=== PATIENT | female | born 1995 | race African-American/Black ===

== ENCOUNTER 2016-08-11 23:13 | Emergency (ER) | payer MEDICAID, OTHER ==
[~2016-08-11] VITALS: Ht 152.4 cm; Wt 73.0 kg
[~2016-08-11 23:13] MED LIST: CEPH500C PO; PRENCAP6 PO; PROM1SUP7 RECTAL; PROM25TA5 PO
[2016-08-11 23:20] VITALS: BP 118/83; PULSE 91; RESP 14; TEMP 98.7; O2SAT 96
[2016-08-11] MEDS ORDERED: CARBXR200 PO (23:35)
[2016-08-11] MEDS ORDERED: PREN29TA PO (23:35)
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
== END 2016-08-12 06:10 | disposition home or self-care (01) ==
LOC: NEPE 23:13 → HOBED 08-12 06:10
DX: O26.893 Other specified pregnancy related conditions, third trimester (principal); O99.343 Other mental disorders complicating pregnancy, third trimester; J45.909 Unspecified asthma, uncomplicated; F41.8 Other specified anxiety disorders; Z3A.29 29 weeks gestation of pregnancy; V43.52XA Car driver injured in collision with other type car in traffic accident, initial encounter; Y93.9 Activity, unspecified; Y92.9 Unspecified place or not applicable; Y99.9 Unspecified external cause status
CPT/HCPCS: 99283

== ENCOUNTER 2017-06-04 17:13 | Emergency (ER) | payer MEDICAID ==
[~2017-06-04 17:13] MED LIST changes: +CARBXR200 PO; -CEPH500C PO; +PREN29TA PO; -PRENCAP6 PO; -PROM1SUP7 RECTAL; -PROM25TA5 PO
[2017-06-04 17:17] VITALS: BP 143/91; PULSE 58; RESP 12; TEMP 98.3; O2SAT 99
[2017-06-04 18:22] LABS: BACTERIA, URINE OCC /hpf; BLOOD, URINE NEG (NEG); COMMENT (UR) CULTURE INDICATED; CULTURE IF INDICATED CULTURE INDICATED; GLUCOSE,URINE NEG (NEG); KETONE, URINE TRACE mg/dL (NEG); MUCUS URINE FEW /lpf (OCC); NITRITE,URINE NEG (NEG); SQUAMOUS EPITHELIAL CELL URINE 10 /hpf (0-5); TRANSITIONAL EPI CELLS, URINE <1 /hpf; URINE COLOR YELLOW (YELLW/STRAW)
--- NOTE | 2017-06-04 21:55 | PD ---
HPI Chief Complaint: Complaint Time Seen by Provider: 21:53 Travel History International Travel<30 days: No Contact w/Intl Traveler<30days: No Traveled to known affect area: No History of Present Illness HPI 21-year-old female came to the emergency room with history of lower abdominal pain and vaginal discharge that smells foul. Patient says this has been going on for past 1 week to 2 weeks. No history of dysuria or hematuria. Patient has had chlamydia last year. She says she was treated. She has had unprotected sex. There was a UA and urine GC and chlamydia ordered in triage area the UA report is back. Also a urine was done which was negative. Given patient's symptoms I have told her that I would go ahead and treat her and she is okay with that. He is otherwise a healthy patient. Her lower abdominal pain is worse during movement and intercourse. No history of fever or chills. PFSH Past Medical History Narrative Medical List of her past medical, surgical, social and family history is reviewed from the nursing note. Hx Anticoagulant Therapy: No Asthma: Yes Autoimmune Disease: No Anxiety: Yes Depression: Yes Cancer: No Cardiovascular Problems: No Chemotherapy: No Diabetes: No Diminished Hearing: No Endocrine: No GERD: Yes Genitourinary: Yes (HX OF UTI) Immune Disorder: No Implanted Vascular Access Dvce: No Musculoskeletal: No Neurologic: Yes (EPILEPSY ) Psychiatric: No Reproductive: No Respiratory: Yes (ASTHMA) Immunizations Current: Yes Seizures: Yes (EPILEPSY) PNEUMOCCOCAL Vaccine (Year): 1 : 8 Para: 2 Miscarriage: 4 : 0 Past Surgical History Abdominal Surgery: Yes () Section: Yes Endocrine Surgery: Yes Hysterectomy: No Tonsillectomy: Yes Other Surgery: Yes Family History Family Hypercholesterolemia: Yes Social History Alcohol Use: No Tobacco Use: No Substance Use: No Allergies-Medications (Allergen,Severity, Reaction): Coded Allergies: chocolate flavor (Unverified Allergy, Severe, THRAOT SWELLING AND ITCHY, ) nitrofurantoin (Unverified Allergy, Severe, NAUSEA/VOMITING, 03/05/17) penicillin G (Unverified Allergy, Severe, Swelling, 03/05/17) insect venom (Unverified Adverse Reaction, Intermediate, rash, 03/05/17) omeprazole (Unverified Adverse Reaction, Intermediate, GI UPSET, 03/05/17) Comments List of her allergies reviewed from the nursing note. Reported Meds & Prescriptions Reported Meds & Active Scripts Active Flagyl (Metronidazole) 250 Mg Tab 250 Mg PO TID 7 Days Reported Plus Iron 29-1 mg ( Vit-Iron Carbonyl) 1 Tab Tab 1 Tab PO DAILY Tegretol-Xr 12 HR (Carbamazepine) 200 Mg Tab 200 Mg PO Q12HR Narrative Medication List of her home medications reviewed from the nursing note. Review of Systems Except as stated in HPI: all other systems reviewed are Neg Genitourinary: Positive: Discharge Physical Exam Narrative GENERAL: Awake, alert, no obvious distress SKIN: Focused skin assessment warm/dry. HEAD: Atraumatic. Normocephalic. EYES: Pupils equal and round. No scleral icterus. No injection or drainage. ENT: No nasal bleeding or discharge. Mucous membranes pink and moist. NECK: Trachea midline. No JVD. CARDIOVASCULAR: Regular rate and rhythm. No murmur appreciated. RESPIRATORY: No accessory muscle use. Clear to auscultation. Breath sounds equal bilaterally. GASTROINTESTINAL: Abdomen soft, non-tender, nondistended. Hepatic and splenic margins not palpable. MUSCULOSKELETAL: No obvious deformities. No clubbing. No cyanosis. No edema. NEUROLOGICAL: Awake and alert. No obvious cranial nerve deficits. Motor grossly within normal limits. Normal speech. PSYCHIATRIC: Appropriate mood and affect; insight and judgment normal. Data Data Last Documented VS Orders Orders Urinalysis - C+S If Indicated (06/04/17 17:36) Ed Urine Pregnancytest Poc (06/04/17 17:36) Gc And Chlamydia Pcr (06/04/17 17:36) Urine Culture (06/04/17 17:45) Doxycycline (Vibratab) (06/04/17 22:15) Metronidazole (Flagyl) (06/04/17 22:15) Ceftriaxone Inj (Rocephin Inj) (06/04/17 22:15) Lidocaine 1% Inj (50 Ml) (Xylocaine 1% I (06/04/17 22:15) Ed Discharge Order (06/04/17 22:04) Azithromycin Powd Pack (Zithromax Powd P (06/04/17 22:15) Labs Laboratory Tests Test 06/04/17 17:45 Urine Color YELLOW Urine Turbidity HAZY Urine pH 7.0 Urine Specific [place] 1.029 Urine Protein 30 mg/dL Urine Glucose (UA) NEG mg/dL Urine Ketones TRACE mg/dL Urine Occult Blood NEG Urine Nitrite NEG Urine Bilirubin NEG Urine Urobilinogen 2.0 MG/DL Urine Leukocyte Esterase SMALL Urine RBC 1 /hpf Urine WBC 18 /hpf Urine Squamous Epithelial Cells 10 /hpf Urine Transitional Epithelial Cells <1 /hpf Urine Bacteria OCC /hpf Urine Mucus FEW /lpf Microscopic Urinalysis Comment CULTURE INDICATED Chlamydia trachomatis DNA (PCR) NOT DETECTED Neisseria gonorrhoeae DNA (PCR) NOT DETECTED MDM Medical Decision Making Medical Screen Exam Complete: Yes Emergency Medical Condition: Yes Medical Record Reviewed: Yes Differential Diagnosis PID, cervicitis, UTI Narrative Course 10:07 PM once again I recommended that the patient should be treated for her symptoms as STD. She is agreeable to that. I've ordered IM Rocephin, by mouth doxycycline and by mouth Flagyl. Patient will be discharged home on 2 prescriptions. As far as UTI is concerned I would wait and see what the urine culture grows. Patient is allergic to Macrobid. Procedures EKG Prior to Arrival: No Diagnosis Primary Impression: PID (acute pelvic inflammatory disease) Additional Impression: UTI (urinary tract infection) Qualified Codes: N39.0 - Urinary tract infection, site not specified Referrals: Primary Care Physician Additional Instructions: Please return to the ER if the condition worsens or any other new concerns. He should not be having unprotected sex due to the risk of exposure for STD which also includes HIV and hep C. Use condoms. Take the medications as per the prescription direction. Med/Other Pt SpecificInfo: Prescription(s) given Scripts Metronidazole (Flagyl) 250 Mg Tab 250 MG PO TID for Infection for 7 Days, TAB 0 Refills Prov: Ana Farah MD 06/04/17 Disposition: 01 DISCHARGE HOME Condition: Stable Ana Farah MD Jun 04, 2017 21:55
[2017-06-04] MEDS ORDERED: METR250 PO (22:10)
[2017-06-04] MEDS ORDERED: AZITHROMYCIN PWD FOR SUSP 1 GM PACKET PO ONE (22:15)
[2017-06-04] MEDS ORDERED: metroNIDAZOLE 500 MG TAB PO ONE (22:15)
[2017-06-04] MEDS ORDERED: cefTRIAXone 250 MG VIAL IM ONE (22:15)
[2017-06-04] MEDS ORDERED: LIDOCAINE HCL 1% 50 ML VIAL IM ONE (22:15)
[2017-06-04] MEDS ORDERED: DOXYCYCLINE HYCLATE 100 MG TAB PO ONE (22:15)
[2017-06-04 23:39] LABS: CHLAMYDIA PCR NOT DETECTED (NOT DETECT); NEISSERIA PCR NOT DETECTED (NOT DETECT)
== END 2017-06-04 23:18 | disposition home or self-care (01) ==
LOC: NEPC 17:13
DX: N73.9 Female pelvic inflammatory disease, unspecified (principal); N39.0 Urinary tract infection, site not specified; B96.20 Unspecified Escherichia coli [E. coli] as the cause of diseases classified elsewhere; J45.909 Unspecified asthma, uncomplicated; F41.9 Anxiety disorder, unspecified; F32.9 Major depressive disorder, single episode, unspecified; K21.9 Gastro-esophageal reflux disease without esophagitis; G40.909 Epilepsy, unspecified, not intractable, without status epilepticus; Z79.899 Other long term (current) drug therapy
CPT/HCPCS: 81001; 84703; 87077; 87086; 87186; 87491; 87591; 96372; 99284; J0696

== ENCOUNTER 2017-09-22 04:17 | Emergency (ER) | payer MEDICAID ==
[~2017-09-22] VITALS: Ht 154.9 cm; Wt 81.8 kg
[~2017-09-22 04:17] MED LIST changes: +METR250 PO
[2017-09-22 04:22] VITALS: BP 124/84; PULSE 103; RESP 18; TEMP 98.4; O2SAT 99
[2017-09-22] MEDS ORDERED: levETIRAcetam INJ 100 ML IV ONE (05:15)
[2017-09-22] MEDS ORDERED: ONDANSETRON HCL 4 MG/2 ML VIAL ONE (05:23)
--- NOTE | 2017-09-22 05:27 | PD ---
HPI Chief Complaint: Seizure Time Seen by Provider: 05:05 Travel History International Travel<30 days: No Contact w/Intl Traveler<30days: No Traveled to known affect area: No History of Present Illness HPI 22-year-old female was brought in by EMS after a seizure episode. Patient has history of seizure and has not been taking her seizure medication for the past year. Patient was on Tegretol XR 200 mg every 12 hours. Patient states that she drinks alcohol occasionally. Patient denies any illicit drug abuse. Patient denies any other medical problem. Patient injured her forehead during the seizure episode. Patient states that she has a laceration to the bottom her left foot. PFSH Past Medical History Hx Anticoagulant Therapy: No Asthma: Yes Anxiety: Yes Depression: Yes Diminished Hearing: No GERD: Yes Genitourinary: Yes (HX OF UTI) Neurologic: Yes (EPILEPSY ) Respiratory: Yes (ASTHMA) Immunizations Current: Yes Seizures: Yes (EPILEPSY) Tetanus Vaccination: < 5 Years PNEUMOCCOCAL Vaccine (Year): 1 ?: Not : 8 Para: 2 Miscarriage: 4 : 0 Past Surgical History Abdominal Surgery: Yes () Section: Yes Endocrine Surgery: Yes Tonsillectomy: Yes Other Surgery: Yes Family History Family Hypercholesterolemia: Yes Social History Alcohol Use: Yes (occassional) Tobacco Use: No Substance Use: No Allergies-Medications (Allergen,Severity, Reaction): Coded Allergies: chocolate flavor (Unverified Allergy, Severe, THRAOT SWELLING AND ITCHY, ) nitrofurantoin (Unverified Allergy, Severe, NAUSEA/VOMITING, 03/05/17) penicillin G (Unverified Allergy, Severe, Swelling, 03/05/17) insect venom (Unverified Adverse Reaction, Intermediate, rash, 03/05/17) omeprazole (Unverified Adverse Reaction, Intermediate, GI UPSET, 03/05/17) Reported Meds & Prescriptions Reported Meds & Active Scripts Active Reported Tegretol-Xr 12 HR (Carbamazepine) 200 Mg Tab 200 Mg PO Q12HR Review of Systems General / Constitutional: No: Fever Eyes: No: Visual changes HENT: No: Headaches Cardiovascular: No: Chest Pain or Discomfort Respiratory: No: Shortness of Breath Gastrointestinal: No: Abdominal Pain Genitourinary: No: Dysuria Musculoskeletal: No: Pain Skin: No Rash Neurologic: Positive: Seizures, No: Weakness Psychiatric: No: Depression Endocrine: No: Polydipsia Hematologic/Lymphatic: No: Easy Bruising Physical Exam Narrative GENERAL: Well-nourished, well-developed patient. SKIN: Focused skin assessment warm/dry. HEAD: Normocephalic. Small hematoma noted on the left forehead. EYES: No scleral icterus. No injection or drainage. NECK: Supple, trachea midline. No JVD or lymphadenopathy. CARDIOVASCULAR: Regular rate and rhythm without murmurs, gallops, or rubs. RESPIRATORY: Breath sounds equal bilaterally. No accessory muscle use. GASTROINTESTINAL: Abdomen soft, non-tender, nondistended. MUSCULOSKELETAL: No cyanosis, or edema. Patient has a superficial laceration measuring about 3 cm on the plantar aspect of the left foot. No active bleeding. BACK: Nontender without obvious deformity. No CVA tenderness. Neurologic exam: Patient is lethargic. Patient moves extremity well. No obvious focal neurological deficit. Data Data Last Documented VS Vital Signs Date Time Temp Pulse Resp B/P (MAP) Pulse Ox O2 Delivery O2 Flow Rate FiO2 09/22/17 04:25 100 2.00 09/22/17 04:22 98.4 103 18 124/84 (97) Orders Orders Complete Blood Count With Diff (09/22/17 05:13) Basic Metabolic Panel (Bmp) (09/22/17 05:13) Iv Access Insert/Monitor (09/22/17 05:13) Ecg Monitoring (09/22/17 05:13) Oximetry (09/22/17 05:13) Ed Urine Pregnancytest Poc (09/22/17 05:13) Levetiracetam Inj (Keppra Inj) (09/22/17 05:15) Ct Brain W/O Iv Contrast(Rout) (09/22/17 05:19) Ondansetron Inj (Zofran Inj) (09/22/17 05:23) Ondansetron Inj (Zofran Inj) (09/22/17 05:30) Labs Laboratory Tests Test 09/22/17 05:19 White Blood Count 9.0 TH/MM3 Red Blood Count 4.49 MIL/MM3 Hemoglobin 12.5 GM/DL Hematocrit 37.4 % Mean Corpuscular Volume 83.3 FL Mean Corpuscular Hemoglobin 27.9 PG Mean Corpuscular Hemoglobin Concent 33.5 % Red Cell Distribution Width 18.4 % Platelet Count 305 TH/MM3 Mean Platelet Volume 8.6 FL Neutrophils (%) (Auto) 43.4 % Lymphocytes (%) (Auto) 47.4 % Monocytes (%) (Auto) 4.9 % Eosinophils (%) (Auto) 3.8 % Basophils (%) (Auto) 0.5 % Neutrophils # (Auto) 3.9 TH/MM3 Lymphocytes # (Auto) 4.3 TH/MM3 Monocytes # (Auto) 0.4 TH/MM3 Eosinophils # (Auto) 0.3 TH/MM3 Basophils # (Auto) 0.0 TH/MM3 CBC Comment DIFF FINAL Differential Comment Blood Urea Nitrogen 10 MG/DL Creatinine 1.06 MG/DL Random Glucose 85 MG/DL Calcium Level 8.5 MG/DL Sodium Level 141 MEQ/L Potassium Level 3.1 MEQ/L Chloride Level 105 MEQ/L Carbon Dioxide Level 21.5 MEQ/L Anion Gap 15 MEQ/L Estimat Glomerular Filtration Rate 77 ML/MIN [facility] Medical Decision Making Medical Screen Exam Complete: Yes Emergency Medical Condition: Yes Interpretation(s) 7:[address] of the brain negative acute pathology. CBC within normal limits. Potassium 3.1. Creatinine 1.06. Differential Diagnosis Differential diagnosis including breakthrough seizure, electrolyte imbalance, substance abuse. Narrative Course 22-year-old female with breakthrough seizures. History of seizure and has not taken her seizure medication for the past year. Spoke with neurologist on-call , Dr. Galarza. Advised Keppra 1 g IV given. KCl 40 mEq p.o. given. Diagnosis Primary Impression: Breakthrough seizure Additional Impression: Hypokalemia Patient Instructions: General Instructions Additional Instructions: Tegretol as directed. Follow-up with local physician and neurologist. Return as needed. Med/Other Pt SpecificInfo: Prescription(s) given Scripts Carbamazepine ER 12 HR (Carbamazepine ER 12 HR) 200 Mg Cap 200 MG PO Q12HR, #60 CAP 0 Refills Prov: Oscar Roman MD 09/22/17 Disposition: 01 DISCHARGE HOME Condition: Stable Oscar Roman MD Sep 22, 2017 05:27
[2017-09-22] MEDS ORDERED: ONDANSETRON HCL 4 MG/2 ML VIAL IV PUSH ONE (05:30)
[2017-09-22 05:45] LABS: AUTOMATED NEUTROPHIL # 3.9 TH/MM3 (1.8-7.7); BASOPHIL % 0.5 % (0.0-2.0); EOSINOPHIL # 0.3 TH/MM3 (0-0.4); EOSINOPHIL % 3.8 % (0.0-4.0); HEMATOCRIT 37.4 % (35.0-46.0); HEMOGLOBIN 12.5 GM/DL (11.6-15.3); LYMPH % 47.4 % (9.0-44.0); LYMPHOCYTE # 4.3 TH/MM3 (1.0-4.8); MEAN CELL VOLUME 83.3 FL (80.0-100.0); MEAN CORPUSCULAR HEMOGLOBIN 27.9 PG (27.0-34.0); MEAN CORPUSCULAR HGB CONC 33.5 % (32.0-36.0); MEAN PLATELET VOLUME 8.6 FL (7.0-11.0); MONO % 4.9 % (0.0-8.0); MONOCYTE # 0.4 TH/MM3 (0-0.9); NEUT % 43.4 % (16.0-70.0); PLATELET COUNT 305 TH/MM3 (150-450); RED BLOOD COUNT 4.49 MIL/MM3 (4.00-5.30); RED CELL DISTRIBUTION WIDTH 18.4 % (11.6-17.2)
[2017-09-22 05:58] LABS: BICARBONATE 21.5 MEQ/L (21.0-32.0); CALCIUM 8.5 MG/DL (8.5-10.1); CREATININE 1.06 MG/DL (0.50-1.00)
--- NOTE | 2017-09-22 06:53 | RADRPT ---
EXAM DATE/TIME: 09/22/2017 06:35 [facility] COMPARISON: No previous studies available for comparison. INDICATIONS : Seizures. Contusion left forehead. RADIATION DOSE: 34.84 CTDIvol (mGy) MEDICAL HISTORY : Seizures. Gastroesophageal reflux disease. SURGICAL HISTORY : section. ENCOUNTER: Initial ACUITY: 1 day PAIN SCALE: 6/10 LOCATION: Left cranial TECHNIQUE: Multiple contiguous axial images were obtained of the head. Using automated exposure control and adj ustment of the mA and/or kV according to patient size, radiation dose was kept as low as reasonably a chievable to obtain optimal diagnostic quality images. DICOM format image data is available electro nically for review and comparison. FINDINGS: CEREBRUM: The ventricles are normal for age. No evidence of midline shift, mass lesion, hemorrhage or acute in farction. No extra-axial fluid collections are seen. POSTERIOR FOSSA: The cerebellum and brainstem are intact. The 4th ventricle is midline. The cerebellopontine angle i s unremarkable. EXTRACRANIAL: The visualized portion of the orbits is intact. SKULL: The calvaria is intact. No evidence of skull fracture. CONCLUSION: Negative noncontrast CT brain. Manas Solis MD on September 22, 2017 at 6:51 Board Certified Radiologist. This report was verified electronically.
[2017-09-22] MEDS ORDERED: CARB200C6 PO (07:15)
[2017-09-22] MEDS ORDERED: POTASSIUM CHLORIDE 20 MEQ CONTROLLED RELEASE TAB PO ONE (07:30)
[2017-09-22 07:42] VITALS: BP 124/78
--- NOTE | 2017-09-22 09:04 | EKG ---
Date Performed: 09/22/2017 Time Performed: 04:17:03 PTAGE: 22 years EKG: SINUS TACHYCARDIA WITH OCCASIONAL VENTRICULAR PREMATURE COMPLEXES MODERATE ST DEPRESSION AB NORMAL ECG NO PREVIOUS TRACING DOCTOR: William Lala Interpretating Date/Time 09/22/2017 09:02:48
== END 2017-09-22 07:43 | disposition home or self-care (01) ==
LOC: NEPE 04:17
DX: G40.909 Epilepsy, unspecified, not intractable, without status epilepticus (principal); E87.6 Hypokalemia
CPT/HCPCS: 70450; 80048; 85025; 93005; 96365; 96375; 99284; J1953; J2405

== ENCOUNTER 2017-10-12 14:31 | Emergency (ER) | payer MEDICAID ==
[~2017-10-12] VITALS: Ht 154.9 cm; Wt 76.0 kg
[~2017-10-12 14:31] MED LIST changes: +CARB200C6 PO; -METR250 PO; -PREN29TA PO
[2017-10-12 15:06] VITALS: BP 154/92; PULSE 80; RESP 17; TEMP 98.8; O2SAT 100
[2017-10-12 16:44] VITALS: BP 141/91; PULSE 82; RESP 18; O2SAT 100
--- NOTE | 2017-10-12 16:52 | PD ---
HPI Chief Complaint: Abdominal Pain Time Seen by Provider: 16:50 Travel History International Travel<30 days: No Contact w/Intl Traveler<30days: No Traveled to known affect area: No History of Present Illness HPI 22-year-old female presents emergency department for evaluation of vaginal discharge. She states sometimes it is a yellow white and other times it looks like it may have some blood in it. This is been ongoing for the last 3-4 days. She reports lower abdominal pain. She states that her last menstrual cycle was September 19. She is uncertain if she is . Denies any fever chills. No urinary symptoms. No other symptoms to report. PFSH Past Medical History Hx Anticoagulant Therapy: No Asthma: Yes Anxiety: Yes Depression: Yes Diminished Hearing: No GERD: Yes Genitourinary: Yes (HX OF UTI) Immune Disorder: No Implanted Vascular Access Dvce: No Neurologic: Yes (EPILEPSY ) Respiratory: Yes (ASTHMA) Immunizations Current: Yes Seizures: Yes (EPILEPSY) PNEUMOCCOCAL Vaccine (Year): 1 ?: Unknown LMP: 09/19/17 : 8 Para: 3 Miscarriage: 5 : 0 Past Surgical History Abdominal Surgery: Yes () Section: Yes (X3) Endocrine Surgery: Yes Tonsillectomy: Yes Other Surgery: Yes Family History Family Hypercholesterolemia: Yes Social History Alcohol Use: Yes (occassional) Tobacco Use: Yes (07/25 PPD) Substance Use: No Allergies-Medications (Allergen,Severity, Reaction): Coded Allergies: chocolate flavor (Unverified Allergy, Severe, THRAOT SWELLING AND ITCHY, ) nitrofurantoin (Unverified Allergy, Severe, NAUSEA/VOMITING, 10/12/17) penicillin G (Unverified Allergy, Severe, Swelling, 10/12/17) insect venom (Unverified Adverse Reaction, Intermediate, rash, 10/12/17) omeprazole (Unverified Adverse Reaction, Intermediate, GI UPSET, 10/12/17) Reported Meds & Prescriptions Reported Meds & Active Scripts Active Keppra (Levetiracetam) 1,000 Mg Tab 1,000 Mg PO BID Doxycycline Hyclate 100 Mg Cap 100 Mg PO BID Carbamazepine ER 12 HR (Carbamazepine) 200 Mg Cap 200 Mg PO Q12HR Reported Tegretol-Xr 12 HR (Carbamazepine) 200 Mg Tab 200 Mg PO Q12HR Review of Systems Except as stated in HPI: all other systems reviewed are Neg Physical Exam Narrative GENERAL: Well-nourished, well-developed female patient in no acute distress. SKIN: Focused skin assessment warm/dry. HEAD: Normocephalic. EYES: No scleral icterus. No injection or drainage. NECK: Supple, trachea midline. No JVD or lymphadenopathy. CARDIOVASCULAR: Regular rate and rhythm without murmurs, gallops, or rubs. RESPIRATORY: Breath sounds equal bilaterally. No accessory muscle use. GASTROINTESTINAL: Abdomen soft, nondistended. Suprapubic tenderness to palpation. Mild guarding. No rebound tenderness. GENITOURINARY: Normal external genitalia without lesions or erythema. Vaginal vault with a significant amount of yellow-white drainage.. Cervical os was closed with same drainage. Positive cervical motion tenderness. Uterus nontender and nonenlarged. Bilateral adnexa nontender without masses. MUSCULOSKELETAL: No cyanosis, or edema. BACK: Nontender without obvious deformity. No CVA tenderness. Data Data Last Documented VS Vital Signs Date Time Temp Pulse Resp B/P (MAP) Pulse Ox O2 Delivery O2 Flow Rate FiO2 10/12/17 18:47 10/12/17 18:35 67 18 100 Room Air 10/12/17 15:06 98.8 Orders Orders Urinalysis - C+S If Indicated (10/12/17 17:14) Wet Prep Profile (10/12/17 17:14) Gc And Chlamydia Pcr (10/12/17 17:14) Ed Urine Pregnancytest Poc (10/12/17 17:14) Ceftriaxone Inj (Rocephin Inj) (10/12/17 18:00) Lidocaine 1% Inj (50 Ml) (Xylocaine 1% I (10/12/17 18:00) Azithromycin (Zithromax) (10/12/17 18:00) Urine Culture (10/12/17 17:20) Ed Discharge Order (10/12/17 18:26) Ibuprofen (Motrin) (10/12/17 18:30) Labs Laboratory Tests Test 10/12/17 17:20 10/12/17 17:45 Urine Color YELLOW Urine Turbidity HAZY Urine pH 8.0 Urine Specific [place] 1.023 Urine Protein 30 mg/dL Urine Glucose (UA) NEG mg/dL Urine Ketones NEG mg/dL Urine Occult Blood TRACE Urine Nitrite NEG Urine Bilirubin NEG Urine Urobilinogen 2.0 MG/DL Urine Leukocyte Esterase LARGE Urine RBC 16 /hpf Urine WBC 138 /hpf Urine Squamous Epithelial Cells 10 /hpf Urine Bacteria FEW /hpf Urine Mucus FEW /lpf Microscopic Urinalysis Comment CULTURE INDICATED Clue Cells (Wet Prep) NONE SEEN Vaginal Trichomonas (Wet Prep) NONE SEEN Vaginal Yeast (Wet Prep) NONE SEEN Chlamydia trachomatis DNA (PCR) NOT DETECTED Neisseria gonorrhoeae DNA (PCR) NOT DETECTED MDM Medical Decision Making Medical Screen Exam Complete: Yes Emergency Medical Condition: Yes Medical Record Reviewed: Yes Differential Diagnosis STD versus UTI versus versus vaginal candidiasis versus PID Narrative Course 22-year-old female presents emergency department for evaluation of vaginal discharge with lower abdominal pain. Patient appears well. She does have CMT with a large amount of discharge on vaginal exam. Patient will be treated for PID. GC PCR is still pending. Laboratory Tests Test 10/12/17 17:20 10/12/17 17:45 Urine Color YELLOW Urine Turbidity HAZY Urine pH 8.0 Urine Specific [place] 1.023 Urine Protein 30 mg/dL Urine Glucose (UA) NEG mg/dL Urine Ketones NEG mg/dL Urine Occult Blood TRACE Urine Nitrite NEG Urine Bilirubin NEG Urine Urobilinogen 2.0 MG/DL Urine Leukocyte Esterase LARGE Urine RBC 16 /hpf Urine WBC 138 /hpf Urine Squamous Epithelial Cells 10 /hpf Urine Bacteria FEW /hpf Urine Mucus FEW /lpf Microscopic Urinalysis Comment CULTURE INDICATED Clue Cells (Wet Prep) NONE SEEN Vaginal Trichomonas (Wet Prep) NONE SEEN Vaginal Yeast (Wet Prep) NONE SEEN Chlamydia trachomatis DNA (PCR) NOT DETECTED Neisseria gonorrhoeae DNA (PCR) NOT DETECTED Patient is counseled on care. She is encouraged to follow-up with a primary care provider, seek RA[employer] TRACTION [employer] WORKER evaluation, and return immediately with any acute worsening symptoms. Diagnosis Primary Impression: PID (acute pelvic inflammatory disease) Referrals: Manager Heavy Duty Primary Care Physician Patient Instructions: General Instructions, Pelvic Inflammatory Disease (DC) Additional Instructions: Utilize condom prophylaxis Follow-up with a supervisor prepress Avoid sun and alcohol on your antibiotic Make sure you have food on your stomach prior to taking her medication. Return immediately with any acute worsening symptoms Med/Other Pt SpecificInfo: Prescription(s) given Scripts Doxycycline Hyclate (Doxycycline Hyclate) 100 Mg Cap 100 MG PO BID for Infection, #28 CAP 0 Refills Prov: Tayler Workman 10/12/17 Disposition: 01 DISCHARGE HOME Condition: Stable Tayler Workman Oct 12, 2017 16:52
[2017-10-12] MEDS ORDERED: cefTRIAXone 250 MG VIAL IM ONE (18:00)
[2017-10-12] MEDS ORDERED: AZITHROMYCIN 250 MG TAB PO ONE (18:00)
[2017-10-12] MEDS ORDERED: LIDOCAINE HCL 1% 50 ML VIAL XX ONE (18:00)
[2017-10-12 18:18] LABS: BACTERIA, URINE FEW /hpf; BILIRUBIN, URINE NEG (NEG); BLOOD, URINE TRACE (NEG); GLUCOSE,URINE NEG (NEG); KETONE, URINE NEG (NEG); MUCUS URINE FEW /lpf (OCC); NITRITE,URINE NEG (NEG); SQUAMOUS EPITHELIAL CELL URINE 10 /hpf (0-5); URINE COLOR YELLOW (YELLW/STRAW); URINE LEUKOCYTE ESTERASE LARGE (NEG)
[2017-10-12] MEDS ORDERED: DOXY100C PO (18:27)
[2017-10-12] MEDS ORDERED: IBUPROFEN 800 MG TAB PO ONE (18:30)
[2017-10-12 18:35] VITALS: PULSE 67; RESP 18; O2SAT 100
== END 2017-10-12 18:47 | disposition home or self-care (01) ==
LOC: NEPD 14:31
DX: N73.0 Acute parametritis and pelvic cellulitis (principal); J45.909 Unspecified asthma, uncomplicated; R10.30 Lower abdominal pain, unspecified; B96.20 Unspecified Escherichia coli [E. coli] as the cause of diseases classified elsewhere; Z72.0 Tobacco use; Z88.0 Allergy status to penicillin
CPT/HCPCS: 81001; 84703; 87077; 87086; 87186; 87210; 87491; 87591; 96372; 99283; J0696

== ENCOUNTER 2017-10-14 09:04 | Emergency (ER) | payer MEDICAID ==
[~2017-10-14 09:04] MED LIST changes: +DOXY100C PO
[2017-10-14 10:11] VITALS: BP 99/54; PULSE 72; RESP 19; TEMP 98.2; O2SAT 99
[2017-10-14] MEDS ORDERED: SODIUM CHLOR 0.9% 1000 ML INJ 1,000 ML IV ONE (10:13)
[2017-10-14] MEDS ORDERED: carBAMazepine 200 MG TAB PO ONE (10:15)
[2017-10-14] MEDS ORDERED: SODIUM CHLORIDE 0.9% FLUSH 10 ML FLUSH IVF PRN (10:15)
[2017-10-14 10:58] LABS: BASOPHIL # 0.1 TH/MM3 (0-0.2); BASOPHIL % 1.2 % (0.0-2.0); EOSINOPHIL # 0.2 TH/MM3 (0-0.4); EOSINOPHIL % 3.3 % (0.0-4.0); HEMATOCRIT 35.9 % (35.0-46.0); HEMOGLOBIN 11.8 GM/DL (11.6-15.3); LYMPH % 47.7 % (9.0-44.0); LYMPHOCYTE # 3.6 TH/MM3 (1.0-4.8); MEAN CELL VOLUME 83.6 FL (80.0-100.0); MEAN CORPUSCULAR HEMOGLOBIN 27.6 PG (27.0-34.0); MONO % 8.1 % (0.0-8.0); MONOCYTE # 0.6 TH/MM3 (0-0.9); NEUT % 39.7 % (16.0-70.0); PLATELET COUNT 321 TH/MM3 (150-450); RED BLOOD COUNT 4.29 MIL/MM3 (4.00-5.30); RED CELL DISTRIBUTION WIDTH 17.8 % (11.6-17.2); WHITE BLOOD COUNT 7.6 TH/MM3 (4.0-11.0)
[2017-10-14 11:16] LABS: ALKALINE PHOSPHATASE 74 U/L (45-117); CARBAMAZEPINE (TEGRETOL) LESS THAN 0.5 MCG/ML (4.0-12.0); TOTAL BILIRUBIN ADULT 0.3 MG/DL (0.2-1.0); TOTAL PROTEIN 7.9 GM/DL (6.4-8.2)
[2017-10-14 11:18] LABS: ALBUMIN 3.5 GM/DL (3.4-5.0); ALT (GPT) 17 U/L (10-53); AST (GOT) 21 U/L (15-37); BICARBONATE 25.6 MEQ/L (21.0-32.0); BLOOD UREA NITROGEN 8 MG/DL (7-18); CALCIUM 8.2 MG/DL (8.5-10.1); CHLORIDE 109 MEQ/L (98-107); CREATININE 0.82 MG/DL (0.50-1.00); GLOMERULAR FILTRATION RATE 104 ML/MIN (>89); GLUCOSE,RANDOM 78 MG/DL (74-106); SODIUM (NA) 142 MEQ/L (136-145)
[2017-10-14 12:25] VITALS: BP 110/74; PULSE 72; RESP 14; O2SAT 96
[2017-10-14] MEDS ORDERED: levETIRAcetam 500 MG TAB PO ONE (13:00)
[2017-10-14] MEDS ORDERED: KEPP10002 PO (13:05)
--- NOTE | 2017-10-14 13:05 | PD ---
HPI Chief Complaint: Seizure Time Seen by Provider: 10:11 Travel History International Travel<30 days: No Contact w/Intl Traveler<30days: No Traveled to known affect area: No History of Present Illness HPI Patient is a 22-year-old female who comes in after 2 seizures this morning. She has history of seizures and is supposed to take Tegretol for them. However , she says the Tegretol makes her very sleepy and shaky and she does not like taking it. She reports that she has not taken any since her birthday, which was several weeks ago. She does report some vomiting yesterday she denies any pain. She denies fever or chills. Severity is mild to moderate. PFSH Past Medical History Hx Anticoagulant Therapy: No Asthma: Yes Anxiety: Yes Depression: Yes Diminished Hearing: No GERD: Yes Genitourinary: Yes (HX OF UTI) Immune Disorder: No Implanted Vascular Access Dvce: No Neurologic: Yes (EPILEPSY ) Respiratory: Yes (ASTHMA) Immunizations Current: Yes Seizures: Yes (EPILEPSY) PNEUMOCCOCAL Vaccine (Year): 1 ?: Not LMP: 09/19/17 : 8 Para: 3 Miscarriage: 5 : 0 Past Surgical History Abdominal Surgery: Yes () Section: Yes (X3) Endocrine Surgery: Yes Hysterectomy: No Tonsillectomy: Yes Other Surgery: Yes Family History Family Hypercholesterolemia: Yes Social History Alcohol Use: Yes (occassional) Tobacco Use: Yes (07/25 PPD) Substance Use: No Allergies-Medications (Allergen,Severity, Reaction): Coded Allergies: chocolate flavor (Unverified Allergy, Severe, THRAOT SWELLING AND ITCHY, ) nitrofurantoin (Unverified Allergy, Severe, NAUSEA/VOMITING, 10/12/17) penicillin G (Unverified Allergy, Severe, Swelling, 10/12/17) insect venom (Unverified Adverse Reaction, Intermediate, rash, 10/12/17) omeprazole (Unverified Adverse Reaction, Intermediate, GI UPSET, 10/12/17) Reported Meds & Prescriptions Reported Meds & Active Scripts Active Doxycycline Hyclate 100 Mg Cap 100 Mg PO BID Carbamazepine ER 12 HR (Carbamazepine) 200 Mg Cap 200 Mg PO Q12HR Reported Tegretol-Xr 12 HR (Carbamazepine) 200 Mg Tab 200 Mg PO Q12HR Review of Systems Except as stated in HPI: all other systems reviewed are Neg General / Constitutional: No: Fever, Chills Eyes: No: Blurred Vision HENT: No: Headaches, Lightheadedness Cardiovascular: No: Chest Pain or Discomfort Respiratory: No: Shortness of Breath Gastrointestinal: No: Abdominal Pain Genitourinary: No: Dysuria Skin: No Rash, No Change in Pigmentation Neurologic: Positive: Seizures, No: Weakness, Dizziness Physical Exam Narrative GENERAL: Sleeping, but awakens easily. SKIN: Focused skin assessment warm/dry. No wounds or signs of infection. HEAD: Atraumatic. Normocephalic. EYES: Pupils equal and round and reactive. No scleral icterus. Extraocular movements intact. ENT: Mucous membranes pink and moist. NECK: Trachea midline. No JVD. CARDIOVASCULAR: Regular rate and rhythm. No murmur appreciated. RESPIRATORY: No accessory muscle use. Clear to auscultation. Breath sounds equal bilaterally. GASTROINTESTINAL: Abdomen soft, non-tender, nondistended. MUSCULOSKELETAL: No obvious deformities. No clubbing. No cyanosis. No edema. NEUROLOGICAL: Sleeping, but awakens to touch. No obvious cranial nerve deficits. Motor grossly within normal limits. Normal speech. PSYCHIATRIC: Appropriate mood and affect; insight and judgment normal. Data Data Last Documented VS Vital Signs Date Time Temp Pulse Resp B/P (MAP) Pulse Ox O2 Delivery O2 Flow Rate FiO2 10/14/17 12:25 72 14 110/74 (86) 96 Room Air 10/14/17 10:11 98.2 Orders Orders Complete Blood Count With Diff (10/14/17 10:13) Carbamazepine (Tegretol) (10/14/17 10:13) Blood Glucose (10/14/17 10:13) Ecg Monitoring (10/14/17 10:13) Iv Access Insert/Monitor (10/14/17 10:13) Oximetry (10/14/17 10:13) Comprehensive Metabolic Panel (10/14/17 10:13) Sodium Chlor 0.9% 1000 Ml Inj (Ns 1000 M (10/14/17 10:13) Sodium Chloride 0.9% Flush (Ns Flush) (10/14/17 10:15) Carbamazepine (Tegretol) (10/14/17 10:15) Levetiracetam (Keppra) (10/14/17 13:00) Labs Laboratory Tests Test 10/14/17 10:30 White Blood Count 7.6 TH/MM3 Red Blood Count 4.29 MIL/MM3 Hemoglobin 11.8 GM/DL Hematocrit 35.9 % Mean Corpuscular Volume 83.6 FL Mean Corpuscular Hemoglobin 27.6 PG Mean Corpuscular Hemoglobin Concent 33.0 % Red Cell Distribution Width 17.8 % Platelet Count 321 TH/MM3 Mean Platelet Volume 9.0 FL Neutrophils (%) (Auto) 39.7 % Lymphocytes (%) (Auto) 47.7 % Monocytes (%) (Auto) 8.1 % Eosinophils (%) (Auto) 3.3 % Basophils (%) (Auto) 1.2 % Neutrophils # (Auto) 3.0 TH/MM3 Lymphocytes # (Auto) 3.6 TH/MM3 Monocytes # (Auto) 0.6 TH/MM3 Eosinophils # (Auto) 0.2 TH/MM3 Basophils # (Auto) 0.1 TH/MM3 CBC Comment DIFF FINAL Differential Comment Blood Urea Nitrogen 8 MG/DL Creatinine 0.82 MG/DL Random Glucose 78 MG/DL Total Protein 7.9 GM/DL Albumin 3.5 GM/DL Calcium Level 8.2 MG/DL Alkaline Phosphatase 74 U/L Aspartate Amino Transf (AST/SGOT) 21 U/L Alanine Aminotransferase (ALT/SGPT) 17 U/L Total Bilirubin 0.3 MG/DL Sodium Level 142 MEQ/L Potassium Level 3.9 MEQ/L Chloride Level 109 MEQ/L Carbon Dioxide Level 25.6 MEQ/L Anion Gap 7 MEQ/L Estimat Glomerular Filtration Rate 104 ML/MIN Carbamazepine (Tegretol) Level LESS THAN 0.5 MCG/ML MDM Medical Decision Making Medical Screen Exam Complete: Yes Emergency Medical Condition: Yes Medical Record Reviewed: Yes Differential Diagnosis Seizure versus medication noncompliance versus electrolyte abnormality Narrative Course Patient is a 22-year-old female comes in after 2 seizures today. Exam shows no acute abnormalities. IV established, labs sent. Labs show no acute abnormalities. Tegretol level is 0. Patient given a dose of her Tegretol. I spoke with Dr. Desai regarding the patient. The patient states she does not want to take Tegretol anymore. He advises switching to Keppra. He advises thousand milligrams twice a day and he will see her in the office. Patient given a dose of the Keppra here and discharged with a prescription. He is advised she is unable to drive until seizure free for 6 months. Advised follow-up with Dr. Desai in his office. Advised to take her seizure medications. Advised to return to the ED as needed for any worsening symptoms. Diagnosis Primary Impression: Seizure Referrals: Sumeet Desai MD PhD call for appointment follow up in 2 weeks Patient Instructions: General Instructions, Generalized Tonic Clonic Seizures ( ED) Additional Instructions: Take your seizure medications as prescribed. Avoid driving until seizure free for at least 6 months. Follow-up with Dr. Desai in 2 weeks. Return to the ED as needed for any worsening symptoms. Scripts Levetiracetam (Keppra) 1,000 Mg Tab 1000 MG PO BID for Control Seizures, #60 TAB 0 Refills Prov: Elysia Calderon MD 10/14/17 Disposition: 01 DISCHARGE HOME Condition: Stable Elysia Calderon MD Oct 14, 2017 13:05
== END 2017-10-14 13:25 | disposition home or self-care (01) ==
LOC: NEPE 09:04
DX: G40.909 Epilepsy, unspecified, not intractable, without status epilepticus (principal); F17.200 Nicotine dependence, unspecified, uncomplicated
CPT/HCPCS: 80053; 80156; 85025; 96360; 99283; J7030

== ENCOUNTER 2017-11-18 10:30 | Emergency (ER) | payer MEDICAID ==
[~2017-11-18] VITALS: Ht 154.9 cm; Wt 68.0 kg
[~2017-11-18 10:30] MED LIST changes: +KEPP10002 PO
[2017-11-18 10:49] VITALS: BP 116/74; PULSE 61; RESP 17; TEMP 98.1; O2SAT 99
[2017-11-18] MEDS ORDERED: ACETAMINOPHEN 325 MG TAB PO ONE (11:15)
[2017-11-18 11:43] LABS: AUTOMATED NEUTROPHIL # 3.9 TH/MM3 (1.8-7.7); BASOPHIL # 0.1 TH/MM3 (0-0.2); BASOPHIL % 0.9 % (0.0-2.0); EOSINOPHIL # 0.2 TH/MM3 (0-0.4); EOSINOPHIL % 2.9 % (0.0-4.0); HEMATOCRIT 33.5 % (35.0-46.0); HEMOGLOBIN 11.3 GM/DL (11.6-15.3); LYMPH % 35.4 % (9.0-44.0); LYMPHOCYTE # 2.7 TH/MM3 (1.0-4.8); MEAN CELL VOLUME 82.5 FL (80.0-100.0); MEAN CORPUSCULAR HGB CONC 33.9 % (32.0-36.0); MONO % 8.4 % (0.0-8.0); MONOCYTE # 0.6 TH/MM3 (0-0.9); NEUT % 52.4 % (16.0-70.0); PLATELET COUNT 268 TH/MM3 (150-450); RED BLOOD COUNT 4.06 MIL/MM3 (4.00-5.30); RED CELL DISTRIBUTION WIDTH 17.4 % (11.6-17.2); WHITE BLOOD COUNT 7.5 TH/MM3 (4.0-11.0)
[2017-11-18 11:56] LABS: BICARBONATE 28.3 MEQ/L (21.0-32.0); CALCIUM 8.7 MG/DL (8.5-10.1); CREATININE 0.79 MG/DL (0.50-1.00); MAGNESIUM 2.1 MG/DL (1.5-2.5)
--- NOTE | 2017-11-18 12:01 | RADRPT ---
EXAM DATE/TIME: 11/18/2017 11:41 [facility] COMPARISON: CT BRAIN W/O CONTRAST, September 22, 2017, 6:35. INDICATIONS : Altered mental status. RADIATION DOSE: 56.35 CTDIvol (mGy) MEDICAL HISTORY : Seizures. SURGICAL HISTORY : None. ENCOUNTER: Initial ACUITY: 1 day PAIN SCALE: 0/10 LOCATION: Bilateral head TECHNIQUE: Multiple contiguous axial images were obtained of the head. Using automated exposure control and adj ustment of the mA and/or kV according to patient size, radiation dose was kept as low as reasonably a chievable to obtain optimal diagnostic quality images. DICOM format image data is available electro nically for review and comparison. FINDINGS: CEREBRUM: The ventricles are normal for age. No evidence of midline shift, mass lesion, hemorrhage or acute in farction. No extra-axial fluid collections are seen. POSTERIOR FOSSA: The cerebellum and brainstem are intact. The 4th ventricle is midline. The cerebellopontine angle i s unremarkable. EXTRACRANIAL: The visualized portion of the orbits is intact. SKULL: The calvaria is intact. No evidence of skull fracture. CONCLUSION: Negative noncontrast head CT. Carlos Enrique Chambers MD on November 18, 2017 at 11:59 Board Certified Radiologist. This report was verified electronically.
--- NOTE | 2017-11-18 12:04 | PD ---
HPI Chief Complaint: Seizure Time Seen by Provider: 11:11 Travel History International Travel<30 days: No Contact w/Intl Traveler<30days: No Traveled to known affect area: No History of Present Illness HPI 22-year-old female that presents to the ED for evaluation of seizure. Patient has a known history of seizures in the past. Patient is to be on Tegretol but this was discontinued and patient was started on Keppra as patient had noncompliance with Tegretol secondary to side effects. This was done about a month ago. Per patient she has been taking the medication and today while being driven toward by mother she had a seizure in the car and she had 2 more seizures at home. Seizures were about 1 minute in length and were full tonic. No tongue biting or loss of continence. She currently does not follow with her neurologist. She states that she is compliant. She states only having some back of the neck and headache. She has been postictal but arousable. She was not given anything for this by ambulance. She denies any falls. Seizures happen while she was sitting. Pain per patient is 8 out of 10. She is able to answer some questions but she does appear to be postictal. PFSH Past Medical History Hx Anticoagulant Therapy: No Asthma: Yes Anxiety: Yes Depression: Yes Diminished Hearing: No GERD: Yes Genitourinary: Yes (HX OF UTI) Immune Disorder: No Implanted Vascular Access Dvce: No Neurologic: Yes (EPILEPSY ) Respiratory: Yes (ASTHMA) Immunizations Current: Yes Seizures: Yes PNEUMOCCOCAL Vaccine (Year): 1 ?: Unknown : 8 Para: 3 Miscarriage: 5 : 0 Past Surgical History Abdominal Surgery: Yes () Section: Yes (X3) Endocrine Surgery: Yes Hysterectomy: No Tonsillectomy: Yes Other Surgery: Yes Family History Family Hypercholesterolemia: Yes Social History Alcohol Use: No Tobacco Use: Yes (3-4 CIGARETTES PER DAY) Substance Use: No Allergies-Medications (Allergen,Severity, Reaction): Coded Allergies: chocolate flavor (Unverified Allergy, Severe, THRAOT SWELLING AND ITCHY, ) nitrofurantoin (Unverified Allergy, Severe, NAUSEA/VOMITING, 11/18/17) penicillin G (Unverified Allergy, Severe, Swelling, 11/18/17) insect venom (Unverified Adverse Reaction, Intermediate, rash, 11/18/17) omeprazole (Unverified Adverse Reaction, Intermediate, GI UPSET, 11/18/17) Reported Meds & Prescriptions Reported Meds & Active Scripts Active Keppra (Levetiracetam) 500 Mg Tab 1,500 Mg PO BID Keppra (Levetiracetam) 1,000 Mg Tab 1,000 Mg PO BID Review of Systems ROS Limitations: Altered Mental Status Except as stated in HPI: all other systems reviewed are Neg Physical Exam Exam Limitations: Altered Mental Status Narrative GENERAL: SKIN: Warm and dry. HEAD: Atraumatic. Normocephalic. EYES: Pupils equal and round. No scleral icterus. No injection or drainage. ENT: No nasal bleeding or discharge. Mucous membranes pink and moist. Tongue is midline. No uvula deviation. NECK: Trachea midline. No JVD. CARDIOVASCULAR: Regular rate and rhythm. No murmurs, S3, S4. RESPIRATORY: No accessory muscle use. Clear to auscultation. Breath sounds equal bilaterally. GASTROINTESTINAL: Abdomen soft, non-tender, nondistended. Hepatic and splenic margins not palpable. MUSCULOSKELETAL: Extremities without clubbing, cyanosis, or edema. No obvious deformities. Full range of motion of the upper and lower extremities bilaterally. 2+ pulses bilaterally. The lumbar, thoracic, cervical spine tenderness to palpation. Most of the pain appears to be in the musculature of the cervical area. NEUROLOGICAL: Somnolent but alert. No obvious cranial nerve deficits. Motor grossly within normal limits. Five out of 5 muscle strength in the arms and legs. Normal speech. PSYCHIATRIC: Appropriate mood and affect; insight and judgment normal. Data Data Last Documented VS Vital Signs Date Time Temp Pulse Resp B/P (MAP) Pulse Ox O2 Delivery O2 Flow Rate FiO2 11/18/17 10:49 98.1 61 17 116/74 (88) 99 Orders Orders Complete Blood Count With Diff (11/18/17 11:11) Basic Metabolic Panel (Bmp) (11/18/17 11:11) Magnesium (Mg) (11/18/17 11:11) Levetiracetam (11/18/17 11:11) Acetaminophen (Tylenol) (11/18/17 11:15) Ct Brain W/O Iv Contrast(Rout) (11/18/17 ) Ed Discharge Order (11/18/17 13:06) Labs Laboratory Tests Test 11/18/17 11:17 White Blood Count 7.5 TH/MM3 Red Blood Count 4.06 MIL/MM3 Hemoglobin 11.3 GM/DL Hematocrit 33.5 % Mean Corpuscular Volume 82.5 FL Mean Corpuscular Hemoglobin 28.0 PG Mean Corpuscular Hemoglobin Concent 33.9 % Red Cell Distribution Width 17.4 % Platelet Count 268 TH/MM3 Mean Platelet Volume 9.0 FL Neutrophils (%) (Auto) 52.4 % Lymphocytes (%) (Auto) 35.4 % Monocytes (%) (Auto) 8.4 % Eosinophils (%) (Auto) 2.9 % Basophils (%) (Auto) 0.9 % Neutrophils # (Auto) 3.9 TH/MM3 Lymphocytes # (Auto) 2.7 TH/MM3 Monocytes # (Auto) 0.6 TH/MM3 Eosinophils # (Auto) 0.2 TH/MM3 Basophils # (Auto) 0.1 TH/MM3 CBC Comment DIFF FINAL Differential Comment Blood Urea Nitrogen 10 MG/DL Creatinine 0.79 MG/DL Random Glucose 76 MG/DL Calcium Level 8.7 MG/DL Magnesium Level 2.1 MG/DL Sodium Level 141 MEQ/L Potassium Level 4.0 MEQ/L Chloride Level 107 MEQ/L Carbon Dioxide Level 28.3 MEQ/L Anion Gap 6 MEQ/L Estimat Glomerular Filtration Rate 108 ML/MIN [facility] Medical Decision Making Medical Screen Exam Complete: Yes Emergency Medical Condition: Yes Medical Record Reviewed: Yes Interpretation(s) CBC & BMP Diagram 11/18/17 11:17 Calcium Level 8.7, Magnesium Level 2.[address] 11/18/17 0000 Signed Impressions: Service Date/Time: Saturday, November 18, 2017 11:41 - CONCLUSION: Negative noncontrast head CT. Carlos Enrique Chambers MD Differential Diagnosis Seizure versus breakthrough seizure versus altered mental status versus electrolyte abnormality Narrative Course 22-year-old female that presents to the ED for evaluation of seizure. Patient was properly examined and was found to have signs and symptoms consistent appears to be seizure. Patient apparently had 3 seizures today witnessed by mother. Patient currently postictal. Patient was recently switched to Keppra. Labs and imaging order. Labs and imaging showed no sign of acute disease. Case was discussed with my attending Dr. Garcia who evaluated the patient himself and recommends discharge. Patient was told to continue taking her medications as prescribed by her doctor. Follow with neurology as outpatient. See ED if worsening symptoms. Follow-up with PCP. No driving or operating heavy machinery for the next 6 months. Diagnosis Primary Impression: Seizure Patient Instructions: General Instructions Additional Instructions: Continue taking her medications. Follow-up with neurologist. See ED if worsening symptoms. Med/Other Pt SpecificInfo: No Change to Meds Scripts Levetiracetam (Keppra) 500 Mg Tab 1500 MG PO BID for Control Seizures, #60 TAB 0 Refills Prov: Honorio Garcia MD 11/18/17 Disposition: 01 DISCHARGE HOME Condition: Kobe Peña Nov 18, 2017 12:04
[2017-11-18] MEDS ORDERED: LEVE500 PO (13:05)
--- NOTE | 2017-11-18 13:06 | PD ---
Data Data Last Documented VS Vital Signs Date Time Temp Pulse Resp B/P (MAP) Pulse Ox O2 Delivery O2 Flow Rate FiO2 11/18/17 10:49 98.1 61 17 116/74 (88) 99 Orders Orders Complete Blood Count With Diff (11/18/17 11:11) Basic Metabolic Panel (Bmp) (11/18/17 11:11) Magnesium (Mg) (11/18/17 11:11) Levetiracetam (11/18/17 11:11) Acetaminophen (Tylenol) (11/18/17 11:15) Ct Brain W/O Iv Contrast(Rout) (11/18/17 ) Ed Discharge Order (11/18/17 13:06) Labs Laboratory Tests Test 11/18/17 11:17 White Blood Count 7.5 TH/MM3 Red Blood Count 4.06 MIL/MM3 Hemoglobin 11.3 GM/DL Hematocrit 33.5 % Mean Corpuscular Volume 82.5 FL Mean Corpuscular Hemoglobin 28.0 PG Mean Corpuscular Hemoglobin Concent 33.9 % Red Cell Distribution Width 17.4 % Platelet Count 268 TH/MM3 Mean Platelet Volume 9.0 FL Neutrophils (%) (Auto) 52.4 % Lymphocytes (%) (Auto) 35.4 % Monocytes (%) (Auto) 8.4 % Eosinophils (%) (Auto) 2.9 % Basophils (%) (Auto) 0.9 % Neutrophils # (Auto) 3.9 TH/MM3 Lymphocytes # (Auto) 2.7 TH/MM3 Monocytes # (Auto) 0.6 TH/MM3 Eosinophils # (Auto) 0.2 TH/MM3 Basophils # (Auto) 0.1 TH/MM3 CBC Comment DIFF FINAL Differential Comment Blood Urea Nitrogen 10 MG/DL Creatinine 0.79 MG/DL Random Glucose 76 MG/DL Calcium Level 8.7 MG/DL Magnesium Level 2.1 MG/DL Sodium Level 141 MEQ/L Potassium Level 4.0 MEQ/L Chloride Level 107 MEQ/L Carbon Dioxide Level 28.3 MEQ/L Anion Gap 6 MEQ/L Estimat Glomerular Filtration Rate 108 ML/MIN [facility] Medical Record Reviewed: Yes Supervised Visit with ANA: Yes Narrative Course CBC & BMP Diagram 11/18/17 11:17 Calcium Level 8.7, Magnesium Level 2.[address] shows no acute disease Patient is on Keppra and we will increase the Keppra dose to 1500 mg twice daily. Currently it is at 1000mg BID. Patient found resting comfortably at 1:05 PM. Plan discussed with patient. Patient amenable with plan. Diagnosis Primary Impression: Seizure Referrals: Neurologist call for appointment Med/Other Pt SpecificInfo: Prescription(s) given Scripts Levetiracetam (Keppra) 500 Mg Tab 1500 MG PO BID for Control Seizures, #60 TAB 0 Refills Prov: Honorio Garcia MD 11/18/17 Disposition: 01 DISCHARGE HOME Condition: Stable Honorio Garcia MD Nov 18, 2017 13:06
== END 2017-11-18 13:33 | disposition home or self-care (01) ==
LOC: NEPE 10:30
DX: G40.909 Epilepsy, unspecified, not intractable, without status epilepticus (principal); F17.210 Nicotine dependence, cigarettes, uncomplicated; Z79.899 Other long term (current) drug therapy
CPT/HCPCS: 70450; 80048; 80177; 83735; 85025; 99284

== ENCOUNTER 2017-12-30 12:16 | Emergency (ER) | payer MEDICAID ==
[~2017-12-30] VITALS: Ht 154.9 cm; Wt 70.0 kg
[~2017-12-30 12:16] MED LIST changes: -CARB200C6 PO; -CARBXR200 PO; -DOXY100C PO; +LEVE500 PO
[2017-12-30 12:19] VITALS: BP 129/77; PULSE 86; RESP 16; TEMP 98.5; O2SAT 100
--- NOTE | 2017-12-30 14:11 | PD ---
HPI Chief Complaint: Abdominal Pain Time Seen by Provider: 14:00 Travel History International Travel<30 days: No Contact w/Intl Traveler<30days: No Traveled to known affect area: No History of Present Illness HPI Patient comes to the emergency department complaining of suprapubic abdominal pain radiating to her lower back ongoing for 3 days. Patient describes pain as crampy-like in nature. Patient reports last night she became nauseous and had 3 episodes of nonbloody nonbilious vomiting. Patient is uncertain if she is . Denies any dysuria, vaginal discharge, fevers, chest pain, shortness of breath, or doing anything for this. Denies any known sick contacts. PFSH Past Medical History Hx Anticoagulant Therapy: No Asthma: Yes Anxiety: Yes Depression: Yes Diminished Hearing: No GERD: Yes Genitourinary: Yes (HX OF UTI) Immune Disorder: No Implanted Vascular Access Dvce: No Neurologic: Yes (EPILEPSY ) Respiratory: Yes (ASTHMA) Immunizations Current: Yes Seizures: Yes PNEUMOCCOCAL Vaccine (Year): 1 ?: Not : 8 Para: 3 Miscarriage: 5 : 0 Past Surgical History Abdominal Surgery: Yes () Section: Yes (X3) Endocrine Surgery: Yes Hysterectomy: No Tonsillectomy: Yes Other Surgery: Yes Family History Family Hypercholesterolemia: Yes Social History Alcohol Use: No Tobacco Use: Yes (3-4 CIGARETTES PER DAY) Substance Use: No Allergies-Medications (Allergen,Severity, Reaction): Coded Allergies: chocolate flavor (Unverified Allergy, Severe, THRAOT SWELLING AND ITCHY, ) nitrofurantoin (Unverified Allergy, Severe, NAUSEA/VOMITING, 11/18/17) penicillin G (Unverified Allergy, Severe, Swelling, 11/18/17) insect venom (Unverified Adverse Reaction, Intermediate, rash, 11/18/17) omeprazole (Unverified Adverse Reaction, Intermediate, GI UPSET, 11/18/17) Reported Meds & Prescriptions Reported Meds & Active Scripts Active Doxycycline Hyclate 100 Mg Cap 100 Mg PO BID Keppra (Levetiracetam) 1,000 Mg Tab 1,000 Mg PO BID Review of Systems Except as stated in HPI: all other systems reviewed are Neg Physical Exam Narrative GENERAL: Well-developed, overly nourished, in no acute distress, and non-ill appearing. SKIN: Focused skin assessment warm and dry. HEAD: Atraumatic. Normocephalic. EYES: Pupils equal and round. EOMI. No scleral icterus. No injection or drainage. ENT: No nasal bleeding or discharge. Mucous membranes pink and moist. NECK: Trachea midline. Supple. No nuclear rigidity. CARDIOVASCULAR: Regular rate and rhythm. No murmur appreciated. RESPIRATORY: No accessory muscle use. No respiratory distress. Clear to auscultation. Breath sounds equal bilaterally. GASTROINTESTINAL: Abdomen soft, non-tender, nondistended, and no guarding. Hepatic and splenic margins not palpable. Normal bowel sounds x4. No pulsatile mass. GENITOURINARY: Normal external genitalia without lesions or erythema. Vaginal vault without blood, but with milky drainage. Cervical os was closed without drainage. No cervical motion tenderness. Uterus nontender and nonenlarged. Bilateral adnexa nontender without masses. Exams was performed in the presence of staff development coordinator Lisa at all times. MUSCULOSKELETAL: No obvious deformities. No clubbing. No cyanosis. No edema. Full range of motion. NEUROLOGICAL: Awake and alert. No obvious cranial nerve deficits. Motor grossly within normal limits. Normal speech. PSYCHIATRIC: Appropriate mood and affect; insight and judgment normal. Data Data Last Documented VS Vital Signs Date Time Temp Pulse Resp B/P (MAP) Pulse Ox O2 Delivery O2 Flow Rate FiO2 12/30/17 12:19 98.5 86 16 129/77 (94) 100 Orders Orders Complete Blood Count With Diff (12/30/17 12:23) Comprehensive Metabolic Panel (12/30/17 12:23) Urinalysis - C+S If Indicated (12/30/17 12:23) Iv Access Insert/Monitor (12/30/17 12:23) Oxygen Administration (12/30/17 12:23) Oximetry (12/30/17 12:23) Lipase (12/30/17 12:23) Ecg Monitoring (12/30/17 14:01) Sodium Chloride 0.9% Flush (Ns Flush) (12/30/17 14:15) Ed Urine Pregnancytest Poc (12/30/17 14:01) Urine Culture (12/30/17 14:14) Ceftriaxone Inj (Rocephin Inj) (12/30/17 15:15) Gc And Chlamydia Pcr (12/30/17 15:14) Wet Prep Profile (12/30/17 15:14) Ed Discharge Order (12/30/17 16:14) Labs Laboratory Tests Test 12/30/17 14:14 12/30/17 15:44 White Blood Count 9.6 TH/MM3 Red Blood Count 4.62 MIL/MM3 Hemoglobin 12.4 GM/DL Hematocrit 38.1 % Mean Corpuscular Volume 82.6 FL Mean Corpuscular Hemoglobin 26.9 PG Mean Corpuscular Hemoglobin Concent 32.6 % Red Cell Distribution Width 18.2 % Platelet Count 289 TH/MM3 Mean Platelet Volume 9.5 FL Neutrophils (%) (Auto) 57.8 % Lymphocytes (%) (Auto) 30.4 % Monocytes (%) (Auto) 7.7 % Eosinophils (%) (Auto) 3.5 % Basophils (%) (Auto) 0.6 % Neutrophils # (Auto) 5.5 TH/MM3 Lymphocytes # (Auto) 2.9 TH/MM3 Monocytes # (Auto) 0.7 TH/MM3 Eosinophils # (Auto) 0.3 TH/MM3 Basophils # (Auto) 0.1 TH/MM3 CBC Comment DIFF FINAL Differential Comment Urine Color DARK-BROWN Urine Turbidity HAZY Urine pH 6.0 Urine Specific Mcloud 1.031 Urine Protein 30 mg/dL Urine Glucose (UA) NEG mg/dL Urine Ketones NEG mg/dL Urine Occult Blood NEG Urine Nitrite POS Urine Bilirubin NEG Urine Urobilinogen 4.0 MG/DL Urine Leukocyte Esterase MOD Urine RBC 2 /hpf Urine WBC 49 /hpf Urine WBC Clumps RARE Urine Squamous Epithelial Cells 41 /hpf Urine Mucus MANY /lpf Microscopic Urinalysis Comment CULTURE INDICATED Blood Urea Nitrogen 10 MG/DL Creatinine 0.98 MG/DL Random Glucose 56 MG/DL Total Protein 8.5 GM/DL Albumin 3.8 GM/DL Calcium Level 9.0 MG/DL Alkaline Phosphatase 86 U/L Aspartate Amino Transf (AST/SGOT) 11 U/L Alanine Aminotransferase (ALT/SGPT) 16 U/L Total Bilirubin 0.6 MG/DL Sodium Level 142 MEQ/L Potassium Level 3.7 MEQ/L Chloride Level 108 MEQ/L Carbon Dioxide Level 27.8 MEQ/L Anion Gap 6 MEQ/L Estimat Glomerular Filtration Rate 84 ML/MIN Lipase 80 U/L Clue Cells (Wet Prep) NONE SEEN Vaginal Trichomonas (Wet Prep) NONE SEEN Vaginal Yeast (Wet Prep) NONE SEEN MDM Medical Decision Making Medical Screen Exam Complete: Yes Emergency Medical Condition: Yes Differential Diagnosis UTI, STD, PID, ectopic , metabolic disturbance Narrative Course The patient presentation with history and evaluation are consistent with UTI. There is no evidence of pyelonephritis. The patient is tolerating fluids and no fevers. There is no clinical evidence to suggest atypical cervicitis, PID, or appendicitis. The patient was discharged on antibiotics and given warnings to return if condition worsens in any way, fever, vomiting and unable to tolerate medications or fluids, worsening back pain, or as needed. The patient was instructed to follow up with their physician. The patient agrees with plan of care. Patient in no obvious distress upon re-evaluation. All pertinent laboratory result(s) discussed with patient with the exception of gonorrhea and Chlamydia are pending at time of discharge. Patient was given IV Rocephin and a prescription for doxycycline. Patient was asked if they wanted to speak to my attending, which the patient did not wish to do at this time. Any questions/ concerns in reference to patient diagnosis/condition discussed and clarified prior to patient's discharge. Reinforced sheer importance of close follow up with patient's primary physician or primary care clinic. Instructed patient to return to ED immediately, if symptoms return/worsen. Patient showed understanding of above instructions. Further instructions and recommendations were detailed in discharge paperwork. Patient ambulated without difficulty out of ED at discharge. Diagnosis Primary Impression: UTI (urinary tract infection) Qualified Codes: N39.0 - Urinary tract infection, site not specified Referrals: [facility] Patient Instructions: General Instructions, Urinary Tract Infection in Women ( ED) Additional Instructions: Follow-up with your primary care physician and/or health Department for additional STD testing. Notify all sexual partners have them tested and treated. Do not have intercourse until all sexual partners tested and treated. Practice safe sex to prevent further STDs and/or unwanted pregnancies. If you would like a copy of your gonorrhea and chlamydia results bring a photo ID to medical records in 24-48 hours to get a copy. Return to the emergency department if symptoms get worse. Med/Other Pt SpecificInfo: Prescription(s) given Scripts Doxycycline Hyclate (Doxycycline Hyclate) 100 Mg Cap 100 MG PO BID for Infection, #20 CAP 0 Refills Prov: Lightburn,Miguel Angel Thang MD 12/30/17 Disposition: 01 DISCHARGE HOME Condition: Stable Phani Eaton Dec 30, 2017 14:11
[2017-12-30] MEDS ORDERED: SODIUM CHLORIDE 0.9% FLUSH 10 ML FLUSH IV FLUSH PRN (14:15)
[2017-12-30 14:52] LABS: ALBUMIN 3.8 GM/DL (3.4-5.0); AST (GOT) 11 U/L (15-37); BICARBONATE 27.8 MEQ/L (21.0-32.0); BLOOD UREA NITROGEN 10 MG/DL (7-18); CHLORIDE 108 MEQ/L (98-107); CREATININE 0.98 MG/DL (0.50-1.00); GLOMERULAR FILTRATION RATE 84 ML/MIN (>89); GLUCOSE,RANDOM 56 MG/DL (74-106); SODIUM (NA) 142 MEQ/L (136-145)
[2017-12-30 14:55] LABS: ALKALINE PHOSPHATASE 86 U/L (45-117); ALT (GPT) 16 U/L (10-53); TOTAL BILIRUBIN ADULT 0.6 MG/DL (0.2-1.0); TOTAL PROTEIN 8.5 GM/DL (6.4-8.2)
[2017-12-30 14:59] LABS: AUTOMATED NEUTROPHIL # 5.5 TH/MM3 (1.8-7.7); BASOPHIL # 0.1 TH/MM3 (0-0.2); BASOPHIL % 0.6 % (0.0-2.0); EOSINOPHIL # 0.3 TH/MM3 (0-0.4); EOSINOPHIL % 3.5 % (0.0-4.0); HEMATOCRIT 38.1 % (35.0-46.0); HEMOGLOBIN 12.4 GM/DL (11.6-15.3); LYMPH % 30.4 % (9.0-44.0); LYMPHOCYTE # 2.9 TH/MM3 (1.0-4.8); MEAN CELL VOLUME 82.6 FL (80.0-100.0); MEAN CORPUSCULAR HEMOGLOBIN 26.9 PG (27.0-34.0); MEAN CORPUSCULAR HGB CONC 32.6 % (32.0-36.0); MEAN PLATELET VOLUME 9.5 FL (7.0-11.0); MONO % 7.7 % (0.0-8.0); MONOCYTE # 0.7 TH/MM3 (0-0.9); NEUT % 57.8 % (16.0-70.0); PLATELET COUNT 289 TH/MM3 (150-450); RED BLOOD COUNT 4.62 MIL/MM3 (4.00-5.30); RED CELL DISTRIBUTION WIDTH 18.2 % (11.6-17.2); WHITE BLOOD COUNT 9.6 TH/MM3 (4.0-11.0)
[2017-12-30 15:02] LABS: BLOOD, URINE NEG (NEG); GLUCOSE,URINE NEG (NEG); KETONE, URINE NEG (NEG); MUCUS URINE MANY /lpf (OCC); NITRITE,URINE POS (NEG); SQUAMOUS EPITHELIAL CELL URINE 41 /hpf (0-5); URINE LEUKOCYTE ESTERASE MOD (NEG); WHITE BLOOD CELL CLUMPS RARE
[2017-12-30 15:06] LABS: BILIRUBIN, URINE NEG (NEG); URINE COLOR DARK-BROWN (YELLW/STRAW)
[2017-12-30] MEDS ORDERED: DOXY100C PO (15:12)
[2017-12-30] MEDS ORDERED: cefTRIAXone INJ 1,000 MG in SODIUM CHLORIDE 0.9% INJ 100 ML IV ONE (15:15)
== END 2017-12-30 16:50 | disposition home or self-care (01) ==
LOC: NEPD 12:16
DX: N39.0 Urinary tract infection, site not specified (principal); F17.210 Nicotine dependence, cigarettes, uncomplicated; G40.909 Epilepsy, unspecified, not intractable, without status epilepticus
CPT/HCPCS: 80053; 81001; 83690; 84703; 85025; 87077; 87086; 87186; 87210; 87491; 87591; 96365; 99284; J0696

== ENCOUNTER 2018-01-11 03:00 | Emergency (ER) | payer MEDICAID ==
[~2018-01-11 03:00] MED LIST changes: +DOXY100C PO; -LEVE500 PO
[2018-01-11 03:08] VITALS: BP 107/74; PULSE 105; RESP 14; TEMP 98.5; O2SAT 98
[2018-01-11 03:10] VITALS: O2SAT 98
--- NOTE | 2018-01-11 03:12 | PD ---
HPI Chief Complaint: Seizure Time Seen by Provider: 03:06 Travel History International Travel<30 days: No Contact w/Intl Traveler<30days: No History of Present Illness HPI 22-year-old female had a witnessed seizure by her family and had a very brief seizure with the ambulance team. The ambulance team states she did not have a postictal phase with her seizure with them. Her seizure resolved on its own before they could get her medications. The patient states she is 5 weeks . She is a . She states she has not had her Keppra in 4 days because she does not have a doctor currently. She denies any other concurrent complaints at this time. Quality was shaking all over. Severity is resolved. This occurred shortly prior to arrival. PFSH Past Medical History Hx Anticoagulant Therapy: No Asthma: Yes Anxiety: Yes Depression: Yes Diminished Hearing: No GERD: Yes Genitourinary: Yes (HX OF UTI) Immune Disorder: No Implanted Vascular Access Dvce: No Neurologic: Yes (EPILEPSY ) Respiratory: Yes (ASTHMA) Immunizations Current: Yes Seizures: Yes PNEUMOCCOCAL Vaccine (Year): 1 : 8 Para: 3 Miscarriage: 5 : 0 Past Surgical History Abdominal Surgery: Yes () Section: Yes (X3) Endocrine Surgery: Yes Hysterectomy: No Tonsillectomy: Yes Other Surgery: Yes Family History Family Hypercholesterolemia: Yes Social History Alcohol Use: No Tobacco Use: Yes (3-4 CIGARETTES PER DAY) Substance Use: No Allergies-Medications (Allergen,Severity, Reaction): Coded Allergies: chocolate flavor (Unverified Allergy, Severe, THRAOT SWELLING AND ITCHY, ) nitrofurantoin (Unverified Allergy, Severe, NAUSEA/VOMITING, 11/18/17) penicillin G (Unverified Allergy, Severe, Swelling, 11/18/17) insect venom (Unverified Adverse Reaction, Intermediate, rash, 11/18/17) omeprazole (Unverified Adverse Reaction, Intermediate, GI UPSET, 11/18/17) Reported Meds & Prescriptions Reported Meds & Active Scripts Active Keppra (Levetiracetam) 1,000 Mg Tab 1,000 Mg PO BID Review of Systems Except as stated in HPI: all other systems reviewed are Neg Physical Exam Narrative GENERAL: 22 y/o female in no apparent distress SKIN: Focused skin assessment warm/dry. HEAD: Atraumatic. Normocephalic. EYES: Pupils equal and round. No scleral icterus. No injection or drainage. ENT: No nasal bleeding or discharge. Mucous membranes pink and moist. NECK: Trachea midline. No JVD. no meningeal signs CARDIOVASCULAR: Regular rate and rhythm. RESPIRATORY: No accessory muscle use. Clear to auscultation. Breath sounds equal bilaterally. GASTROINTESTINAL: Abdomen soft, non-tender, nondistended. MUSCULOSKELETAL: No obvious deformities. No clubbing. No cyanosis. No edema. NEUROLOGICAL: Awake and alert. No obvious cranial nerve deficits. Motor grossly within normal limits. Normal speech. Data Data Last Documented VS Vital Signs Date Time Temp Pulse Resp B/P (MAP) Pulse Ox O2 Delivery O2 Flow Rate FiO2 01/11/18 03:10 98 Room Air 01/11/18 03:08 98.5 105 14 107/74 (85) Orders Orders Lorazepam (Ativan) (01/11/18 03:15) Levetiracetam (Keppra) (01/11/18 03:15) Complete Blood Count With Diff (01/11/18 03:07) Alcohol (Ethanol) (01/11/18 03:07) Drug Screen, Random Urine (01/11/18 03:07) Electrocardiogram (01/11/18 ) Ecg Monitoring (01/11/18 03:07) Iv Access Insert/Monitor (01/11/18 03:07) Oximetry (01/11/18 03:07) Comprehensive Metabolic Panel (01/11/18 03:07) Sodium Chloride 0.9% Flush (Ns Flush) (01/11/18 03:15) Urinalysis - C+S If Indicated (01/11/18 03:07) Ed Urine Pregnancytest Poc (01/11/18 03:07) Labs Laboratory Tests Test 01/11/18 03:10 White Blood Count 8.1 TH/MM3 Red Blood Count 4.29 MIL/MM3 Hemoglobin 11.8 GM/DL Hematocrit 34.9 % Mean Corpuscular Volume 81.2 FL Mean Corpuscular Hemoglobin 27.4 PG Mean Corpuscular Hemoglobin Concent 33.8 % Red Cell Distribution Width 18.3 % Platelet Count 250 TH/MM3 Mean Platelet Volume 9.2 FL Neutrophils (%) (Auto) 45.6 % Lymphocytes (%) (Auto) 45.0 % Monocytes (%) (Auto) 6.4 % Eosinophils (%) (Auto) 2.3 % Basophils (%) (Auto) 0.7 % Neutrophils # (Auto) 3.7 TH/MM3 Lymphocytes # (Auto) 3.6 TH/MM3 Monocytes # (Auto) 0.5 TH/MM3 Eosinophils # (Auto) 0.2 TH/MM3 Basophils # (Auto) 0.1 TH/MM3 CBC Comment DIFF FINAL Differential Comment MDM Medical Decision Making Medical Screen Exam Complete: Yes Emergency Medical Condition: Yes Medical Record Reviewed: Yes ([facility] confirmed) Interpretation(s) CBC & BMP Diagram 01/11/18 03:10 Differential Diagnosis Breakthrough seizure, electrolyte abnormality, UTI Narrative Course Will check blood work, urinalysis and dose with Ativan to prevent seizure in her place her back on her Keppra and monitor. Patient without any symptoms and further testing for this can be tested outpatient. cbc only back and patient wanting to leave ama, chased down burk as was eloping and agreed to take a prescription but would not stay any further. AMA: The risks of leaving against medical advice without further evaluation treatment were discussed with the patient. These risks include cardiac dysfunction, cardiac dysrhythmia, possible heart attack, possible stroke or . The patient indicated understanding of these risks and appeared to have the capacity to make this decision. Diagnosis Primary Impression: Seizure Patient Instructions: General Instructions Additional Instructions: fill your script, follow with primary saturday, return when possible for completion of your testing Med/Other Pt SpecificInfo: Prescription(s) given Scripts Levetiracetam (Keppra) 1,000 Mg Tab 1000 MG PO BID for Control Seizures, #60 TAB 0 Refills Prov: Venita Ivey MD 01/11/18 Disposition: 07 AGAINST MEDICAL ADVICE Condition: Stable Venita Ivey MD Jan 11, 2018 03:12
[2018-01-11] MEDS ORDERED: levETIRAcetam 500 MG TAB PO ONE (03:15)
[2018-01-11] MEDS ORDERED: LORazepam 1 MG TAB PO ONE (03:15)
[2018-01-11] MEDS ORDERED: SODIUM CHLORIDE 0.9% FLUSH 10 ML FLUSH IVF PRN (03:15)
[2018-01-11 03:39] LABS: AUTOMATED NEUTROPHIL # 3.7 TH/MM3 (1.8-7.7); BASOPHIL # 0.1 TH/MM3 (0-0.2); BASOPHIL % 0.7 % (0.0-2.0); EOSINOPHIL # 0.2 TH/MM3 (0-0.4); EOSINOPHIL % 2.3 % (0.0-4.0); HEMATOCRIT 34.9 % (35.0-46.0); HEMOGLOBIN 11.8 GM/DL (11.6-15.3); LYMPHOCYTE # 3.6 TH/MM3 (1.0-4.8); MEAN CELL VOLUME 81.2 FL (80.0-100.0); MEAN CORPUSCULAR HEMOGLOBIN 27.4 PG (27.0-34.0); MEAN CORPUSCULAR HGB CONC 33.8 % (32.0-36.0); MEAN PLATELET VOLUME 9.2 FL (7.0-11.0); MONO % 6.4 % (0.0-8.0); MONOCYTE # 0.5 TH/MM3 (0-0.9); NEUT % 45.6 % (16.0-70.0); PLATELET COUNT 250 TH/MM3 (150-450); RED BLOOD COUNT 4.29 MIL/MM3 (4.00-5.30); RED CELL DISTRIBUTION WIDTH 18.3 % (11.6-17.2); WHITE BLOOD COUNT 8.1 TH/MM3 (4.0-11.0)
[2018-01-11 04:13] LABS: ALBUMIN 3.9 GM/DL (3.4-5.0); ALT (GPT) 17 U/L (10-53); AST (GOT) 15 U/L (15-37); BICARBONATE 19.9 MEQ/L (21.0-32.0); BLOOD UREA NITROGEN 8 MG/DL (7-18); CALCIUM 8.4 MG/DL (8.5-10.1); CHLORIDE 108 MEQ/L (98-107); GLOMERULAR FILTRATION RATE 107 ML/MIN (>89); GLUCOSE,RANDOM 87 MG/DL (74-106); SODIUM (NA) 141 MEQ/L (136-145)
[2018-01-11 04:15] LABS: ALKALINE PHOSPHATASE 78 U/L (45-117); TOTAL BILIRUBIN ADULT 0.4 MG/DL (0.2-1.0); TOTAL PROTEIN 8.3 GM/DL (6.4-8.2)
[2018-01-11] MEDS ORDERED: KEPP10002 PO (04:15)
--- NOTE | 2018-01-11 17:47 | EKG ---
Date Performed: 01/11/2018 Time Performed: 03:21:34 PTAGE: 22 years EKG: Sinus rhythm POSSIBLE LEFT ATRIAL ENLARGEMENT BORDERLINE ECG Compared to PREVIOUS TRACING , no obvious changes. Old tracing was full of artifact. PREVIOUS TRACING : 09/22/2017 04.17 DOCTOR: Mario Noguera Interpretating Date/Time 01/11/2018 17:45:51
== END 2018-01-11 04:27 | disposition left against medical advice (07) ==
LOC: NEPE 03:00
DX: O99.351 Diseases of the nervous system complicating pregnancy, first trimester (principal); G40.909 Epilepsy, unspecified, not intractable, without status epilepticus; O99.331 Smoking (tobacco) complicating pregnancy, first trimester; F17.210 Nicotine dependence, cigarettes, uncomplicated; Z3A.01 Less than 8 weeks gestation of pregnancy; Z79.899 Other long term (current) drug therapy
CPT/HCPCS: 80053; 80307; 84703; 85025; 93005